=== PATIENT | male | born 1990 | race African-American/Black ===

== ENCOUNTER 2018-07-19 08:33 | Emergency (ER) | payer OTHER ==
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
[2018-07-19 09:45] LABS: MEAN CORPUSCULAR HEMOGLOBIN 27.7 pg (28.0-34.0)
[2018-07-19 09:47] LABS: MONOCYTES % 10.9 % (0.0-11.0)
[2018-07-19 09:48] LABS: BASOPHILS % 13.6 % (0.0-1.5); EOSINOPHILS % 1.9 % (0.0-6.8); NEUTROPHILS # 4.9 # k/uL (1.4-7.7)
[2018-07-19] MEDS: fentaNYL CITRATE/PF 100 MCG/2 ML INJ. IVP ONE ×2 (10:52→12:59)
[2018-07-19] MEDS: 0.9 % SODIUM CHLORIDE 1,000 ML IV ONE (10:55)
--- NOTE | 2018-07-19 13:11 | Diagnostic Imaging Report ---
SEAN BANSAL (CUPOLA REPAIRER) - ER [facility] [id number] [facility].[address] [address] Report Submission Date: Jul 19, 2018 10:47:04 AM CDT Patient Study Name: SHANT STEWART Date: Jul 19, 2018 9:12:53 AM CDT Modality Type: US Gender: M Description: US EXTREMITY VEINS UNILAT : 90 Institution: [facility] Physician: SEAN BANSAL (TISH) - ER Duplex imaging of the lower extremity veins bilaterally Clinical history: Bilateral leg pain. 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 Rule out deep venous thrombosis. Technique: Real-time sonography of both lower extremities is performed in transverse and longitudinal views. Doppler interrogation and color flow imaging are additionally used. Findings: Deep venous thrombosis is identified on the right side beginning in the popliteal vein extending into the posterior tibial and peroneal veins. The right common femoral and superficial femoral veins are free of intraluminal thrombus. On the left side there is deep venous thrombosis in the veins of the calf. The veins from the common femoral vein to the popliteal vein are free of intraluminal thrombus. Superficial thrombophlebitis is also evident in the greater saphenous vein in the calf. Impression: 1. Deep venous thrombosis in both lower extremities involving the veins in the calf and in the right popliteal vein. 2. Superficial thrombophlebitis in the greater saphenous vein in the left calf. Electronically signed on Jul 19, 2018 10:47:04 AM CDT by: Tha TEJEDA
--- NOTE | 2018-07-19 13:14 | Diagnostic Imaging Report ---
<p>Your browser does not support iframes.</p> SEAN BANSAL (OVEREDGE MACHINE OPERATOR) - ER [place] [id number] [facility] [address] [place], [place]. [address] Report Submission Date: Jul 19, 2018 1:07:02 PM CDT Patient Study Name: SHANT STEWART Date: Jul 19, 2018 12:34:10 PM CDT Modality Type: CT\SR Gender: M Description: CT PE CHEST : 90 Institution: [facility] Physician: SEAN BANSAL (OVEREDGE MACHINE OPERATOR) - ER CT pulmonary angiography Clinical history: Right-sided back pain. Deep venous thrombosis. Rule out pulmonary embolus. Technique: CT pulmonary angiography is performed with intravenous infusion of contrast. Sagittal and sliding coronal MIP reconstructions were performed by the technologist. Findings: There is a saddle pulmonary embolus. Pulmonary arteries are not well opacified but there is extensive embolus identified in both lower lobe pulmonary arteries. Main pulmonary artery is enlarged measuring to 3.6 cm in size consistent with pulmonary arterial hypertension. There is straightening of the interventricular septum consistent with right heart strain. There are peripheral areas of increased density left lower lobe likely representing pulmonary infarcts. Central airways are patent. Impression: 1. Saddle pulmonary embolus with extensive emboli in both lower lobes and evidence of right heart strain and pulmonary arterial hypertension. 2. Pulmonary infarcts in the left lower lobe. 3. Critical results were phoned to nurse practitioner Myles at 1304 hr. Electronically signed on Jul 19, 2018 1:07:02 PM CDT by: Tha TEJEDA
[2018-07-19] MEDS: HEPARIN SODIUM 5000 UNIT/1 ML IVP ONE (13:37)
[2018-07-19] MEDS: HEPARIN SODIUM,PORCINE/D5W 20,000 UNIT/500 ML BAG IV ONE ×2 (13:50→14:16)
[2018-07-19 14:36] VITALS: BP 143/95
== END 2018-07-19 13:52 | disposition short-term general hospital (02) ==
LOC: ED 08:33
DX: I26.02 Saddle embolus of pulmonary artery with acute cor pulmonale (principal); I82.433 Acute embolism and thrombosis of popliteal vein, bilateral; Z72.0 Tobacco use
CPT/HCPCS: 36415; 71275; 80053; 81240; 81291; 83090; 83880; 84484; 85025; 85240; 85303; 85306; 85384; 85610; 85730; 93005; 93970; 96374; 96375; 96376; 99285; J1644; J3010; J7030; Q9967; S1016